=== PATIENT | female | born 1950 | race African-American/Black ===

== ENCOUNTER 2020-05-03 12:10 | Emergency (ER) | payer OTHER, BC ==
[2020-05-03 13:20] LABS: Basophils % 0.4 % (0-1.3); Hematocrit 40.5 % (36.0-45.0); Lymphocytes % 18.3 % (15.3-44.8); MPV 8.7 fL (7.6-11.3); RBC Red Blood Cell Count 4.54 M/uL (3.86-4.86)
[2020-05-03 13:35] LABS: BUN Blood Urea Nitrogen 9 mg/dL (7-18); Bicarbonate 29 mmol/L (21-32); Glucose Level 106 mg/dL (74-106); Potassium 3.9 mmol/L (3.5-5.1); Sodium Level 141 mmol/L (136-145); Troponin (Emerg Dept Use Only) < 0.02 ng/mL (0.0-0.045)
[2020-05-03 14:02] LABS: Urine Blood NEGATIVE (NEG); Urine Glucose NEGATIVE (NEG); Urine Protein 1+ (NEG)
--- NOTE | 2020-05-03 14:02 | RAD REPORT ---
EXAM DESCRIPTION: CT - Head Brain Wo Cont - 05/03/2020 1:45 pm CLINICAL HISTORY: DIZZINESS COMPARISON: Head angio dated 05/03/2020Head angio dated 05/03/2020; Head C Spine Mpr Wo Con dated 11/05 TECHNIQUE: Axial 5 mm thick images of the head were obtained without IV contrast. All CT scans are performed using dose optimization technique as appropriate and may include automated exposure control or mA/KV adjustment according to patient size. FINDINGS: No intracranial hemorrhage, mass, edema or shift of mid-line structures. No acute cortical based infarction. No cortical edema or sulcal effacement. Ventricles are normal. 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 Mastoid air cells and visualized portions of the paranasal sinuses are clear. No acute bony findings. IMPRESSION: Negative non-contrast CT head examination. Above detailed findings are similar to 2016 study.
--- NOTE | 2020-05-03 14:04 | RAD REPORT ---
EXAM DESCRIPTION: CT - Neck Angio - 05/03/2020 1:46 pm CLINICAL HISTORY: dizziness, stroke-like symptoms TECHNIQUE: During dynamic enhancement using nonionic IV contrast, axial 2 mm thick images of the nec k were obtained. Sagittal and axial reconstruction images were generated using MIP technique and revi ewed. All CT scans are performed using dose optimization technique as appropriate and may include automated exposure control or mA/KV adjustment according to patient size. COMPARISON: CT head same date FINDINGS: No aneurysm or vascular malformation identified. No carotid or vertebral dissection. No aortic arch or great vessel origin abnormality seen. Vertebral artery origins unremarkable as well . No stenosis, vasculitis or other significant carotid artery finding. No focal abnormality of either vertebral artery. Basilar artery is normal. Tortuosity of the carotid vasculature noted. Imaged port ions of the subclavian arteries show no suspicious findings. IMPRESSION: Negative CT angio neck examination.
--- NOTE | 2020-05-03 14:06 | RAD REPORT ---
EXAM DESCRIPTION: CT - Head angio - 05/03/2020 1:46 pm CLINICAL HISTORY: DIZZINESS, stroke-like symptoms TECHNIQUE: During dynamic enhancement using nonionic IV contrast, axial 1 millimeter thick images of the head were obtained. Sagittal and axial reconstruction images were generated using MIP technique and reviewed. All CT scans are performed using dose optimization technique as appropriate and may include automated exposure control or mA/KV adjustment according to patient size. COMPARISON: CT head same date FINDINGS: No aneurysm or vascular malformation identified. Major venous sinuses are patent. No stenosis, named branch occlusion, vasculitis or other significant vascular finding identifiable. IMPRESSION: Negative CT angio head examination.
[2020-05-03 14:30] LABS: SARS-COV-2 RT PCR POSITIVE (NEGATIVE)
[2020-05-03 14:36] LABS: Urine Bacteria <20 /HPF (<20); Urine RBC <5 /HPF (NONE SEEN)
[2020-05-03] MEDS ORDERED: NA CHLORIDE 0.9% 500 ML ONE (14:42)
[2020-05-03] MEDS ORDERED: MECLIZINE HCL 12.5 MG TAB ONE (14:42)
--- NOTE | 2020-05-03 15:01 | ER ---
Nurse's Notes [facility] Name: Alana Clarke Age: 70 yrs Sex: Female : 1950 Arrival Date: 05/03/2020 Time: 12:15 Bed 17 Private MD: Diagnosis: Dizziness and giddiness;Coronavirus infection, unspecified Presentation: 05/03 12:20 Chief complaint: EMS states: sinus congestion for a week and dizziness when she stands zb up for 2 days, tested negative for covid last Monday. works for [employer]. denies sob, chest pain, n/v, diarrhea, loss of taste or smell. Coronavirus screen: Client presents with at least one sign or symptom that may indicate coronavirus-19. Standard/surgical mask placed on the client. Provider contacted for isolation considerations. Ebola Screen: No symptoms or risks identified at this time. Initial Sepsis Screen: Does the patient meet any 2 criteria? No. Patient's initial sepsis screen is negative. Does the patient have a suspected source of infection? No. Patient's initial sepsis screen is negative. Risk Assessment: Do you want to hurt yourself or someone else? Patient reports no desire to harm self or others. Onset of symptoms was May 01, 2020. 12:20 Acuity: KOFI 3 zb 12:20 Method Of Arrival: EMS: [facility] zb Triage Assessment: 12:30 General: Appears in no apparent distress. comfortable, Behavior is calm, cooperative, zb appropriate for age. Pain: Denies pain. EENT: Nares with drainage noted Reports nasal congestion nasal discharge that is watery. Neuro: Level of Consciousness is awake, alert, obeys commands, Oriented to person, place, time, situation. Cardiovascular: Reports syncope, Denies chest pain, diaphoresis, Heart tones S1 S2 present Capillary refill < 3 seconds Patient's skin is warm and dry. Respiratory: Airway is patent Respiratory effort is even, unlabored, Respiratory pattern is regular, symmetrical, Breath sounds are clear bilaterally. GI: No signs and/or symptoms were reported involving the gastrointestinal system. : No signs and/or symptoms were reported regarding the genitourinary system. Derm: Skin is intact, is healthy with good turgor, Skin is dry, Skin is normal, Skin temperature is warm. Musculoskeletal: Circulation, motion, and sensation intact. Capillary refill < 3 seconds, in bilateral fingers. Range of motion: intact in all extremities. Historical: - Allergies: 12:24 No Known Allergies; zb - Home Meds: 12:23 amlodipine 5 mg tab 1 tab once daily [Active]; aspirin 81 mg Oral chew Every other day zb [Active]; atorvastatin 40 mg Oral tab 1 tab once daily [Active]; Vitamin D Oral [Active]; vitamin E Oral [Active]; - PMHx: 12:23 High Cholesterol; Hypertension; zb - PSHx: 12:23 None; zb - Immunization history:: Adult Immunizations up to date. - Social history:: Smoking status: Patient denies any tobacco usage or history of. - Family history:: not pertinent. - Hospitalizations: : No recent hospitalization is reported. Screenin:30 Abuse screen: Denies threats or abuse. Denies injuries from another. Nutritional zb screening: No deficits noted. Tuberculosis screening: No symptoms or risk factors identified. Fall Risk None identified. Assessment: 12:30 Reassessment: See triage note. zb 13:30 Reassessment: Patient appears in no apparent distress at this time. Patient and/or zb family updated on plan of care and expected duration. Pain level reassessed. Patient is alert, oriented x 3, equal unlabored respirations, skin warm/dry/pink. pt awaiting covid, ct, and x-ray results. 14:30 Reassessment: Patient appears in no apparent distress at this time. Patient and/or zb family updated on plan of care and expected duration. Pain level reassessed. Patient is alert, oriented x 3, equal unlabored respirations, skin warm/dry/pink. pt able to ambulated to the restroom. 14:56 Reassessment: ECP at bedside discussing care. zb 15:24 Reassessment: Patient appears in no apparent distress at this time. Patient and/or zb family updated on plan of care and expected duration. Pain level reassessed. Patient is alert, oriented x 3, equal unlabored respirations, skin warm/dry/pink. d/c instructions given to patient wheeled out. no c/o at this time. Vital Signs: 12:20 BP 117 / 103; Pulse 88; Resp 18; Temp 98.5; Pulse Ox 95% on R/A; Weight 81.65 kg; zb Height 5 ft. 5 in. (165.10 cm); Pain 0/10; 12:30 BP 140 / 80; Pulse 82; Resp 16; Pulse Ox 99% on R/A; zb 13:30 BP 134 / 79; Pulse 73; Resp 16; Pulse Ox 100% on R/A; zb 14:30 BP 147 / 87; Pulse 75; Resp 18; Pulse Ox 98% on R/A; zb 15:20 BP 148 / 86; Pulse 80; Resp 16; Pulse Ox 99% on R/A; zb 12:20 Body Mass Index 29.95 (81.65 kg, 165.10 cm) zb ED Course: 12:15 Patient arrived in ED. rn 12:16 Ethan Harrell MD is Attending Physician. rn 12:18 Jerry Patel, RN is Primary Nurse. jteo 12:19 Katie Souza, RN is Primary Nurse. zb 12:23 Triage completed. zb 12:28 Radiology exam delayed due to lab results not completed at this time. (BUN/Creatinine) mw3 IV insertion attempt and/or patient not having appropriate IV at this time. 12:53 Inserted saline lock: 20 gauge in left antecubital area, using aseptic technique. Blood dh4 collected. 13:44 CT Head Brain wo Cont In Process Unspecified. EDMS 13:46 CT Head Angio In Process Unspecified. EDMS 13:46 CT Neck Angio In Process Unspecified. EDMS 15:06 Patient has correct armband on for positive identification. Bed in low position. Call zb light in reach. Side rails up X 1. Pulse ox on. NIBP on. Door closed. Noise minimized. Warm blanket given. 15:06 Arm band placed on right wrist. zb 15:25 IV discontinued, intact, bleeding controlled, No redness/swelling at site. Pressure zb dressing applied. 15:25 No provider procedures requiring assistance completed. zb Administered Medications: 14:00 Drug: NS 0.9% 500 ml Route: IV; Rate: bolus; Site: right antecubital; zb 15:00 Follow up: IV Status: Completed infusion; IV Intake: 500ml zb 14:00 Drug: Meclizine 50 mg Route: PO; zb 15:23 Follow up: Response: No adverse reaction zb Intake: 15:00 IV: 500ml; Total: 500ml. zb Outcome: 15:00 Discharge ordered by . rn 15:25 Discharged to home via wheelchair. zb 15:25 Condition: stable 15:25 Discharge instructions given to patient, Instructed on discharge instructions, follow up and referral plans. covid precautions. Demonstrated understanding of instructions, follow-up care. 15:27 Patient left the ED. zb Signatures: Dispatcher [employer] EDMS Ethan Harrell MD MD rn Davies, Jonathon, RN RN Stacy Desai 3 Manohar Canales 4 Katie Souza RN RN zb
--- NOTE | 2020-05-03 15:01 | EDPHYS ---
Physician Documentation [facility] Name: Alana Clarke Age: 70 yrs Sex: Female : 1950 Arrival Date: 05/03/2020 Time: 12:15 Bed 17 Private MD: ED Physician Ethan Harrell HPI: 05/03 13:17 This 70 yrs old Black Female presents to ER via EMS with complaints of dizziness. rn 13:17 The patient presents with dizziness, lightheadedness. Onset: The symptoms/episode rn began/occurred 2 day(s) ago. Modifying factors: The symptoms are alleviated by lying down, the symptoms are aggravated by standing up, changing position. Associated signs and symptoms: Pertinent negatives: abdominal pain, chest pain, combativeness, confusion, diaphoresis, head injury, headache, numbness, palpitations, seizure, shortness of breath, syncope, vomiting. Severity of symptoms: At their worst the symptoms were mild in the emergency department the symptoms are unchanged. The patient has not experienced similar symptoms in the past. The patient has not recently seen a physician. Reports 2 days of intermittent dizziness, worst when trying to stand up from seated position, feels like might fall, gets better when laying down and taking her time. No head injury, no other neurological complaint. Reports thinks has sinus infection. No headache/vomiting/vision changes/chest pain/sob/abd pain/vomiting/diarrhea. No urinary symptoms. . Historical: - Allergies: 12:24 No Known Allergies; zb - Home Meds: 12:23 amlodipine 5 mg tab 1 tab once daily [Active]; aspirin 81 mg Oral chew Every other day zb [Active]; atorvastatin 40 mg Oral tab 1 tab once daily [Active]; Vitamin D Oral [Active]; vitamin E Oral [Active]; - PMHx: 12:23 High Cholesterol; Hypertension; zb - PSHx: 12:23 None; zb - Immunization history:: Adult Immunizations up to date. - Social history:: Smoking status: Patient denies any tobacco usage or history of. - Family history:: not pertinent. - Hospitalizations: : No recent hospitalization is reported. ROS: 13:17 Constitutional: Negative for fever, chills, and weight loss, Eyes: Negative for injury, rn pain, redness, and discharge, ENT: Negative for injury, pain, and discharge, Neck: Negative for injury, pain, and swelling, Cardiovascular: Negative for chest pain, palpitations, and edema, Respiratory: Negative for shortness of breath, cough, wheezing, and pleuritic chest pain, Abdomen/GI: Negative for abdominal pain, nausea, vomiting, diarrhea, and constipation, Back: Negative for injury and pain, : Negative for injury, bleeding, discharge, and swelling, MS/Extremity: Negative for injury and deformity, Skin: Negative for injury, rash, and discoloration, Neuro: Negative for headache, weakness, numbness, tingling, and seizure. Exam: 13:17 Constitutional: This is a well developed, well nourished patient who is awake, alert, rn and in no acute distress. Head/Face: Normocephalic, atraumatic. Eyes: Pupils equal round and reactive to light, extra-ocular motions intact. Lids and lashes normal. Conjunctiva and sclera are non-icteric and not injected. Cornea within normal limits. Periorbital areas with no swelling, redness, or edema. ENT: dry MM Neck: Trachea midline, no thyromegaly or masses palpated, and no cervical lymphadenopathy. Supple, full range of motion without nuchal rigidity, or vertebral point tenderness. No Meningismus. Cardiovascular: Regular rate and rhythm. No pulse deficits. Respiratory: No increased work of breathing, no retractions or nasal flaring. Abdomen/GI: soft, non-tender Skin: Warm, dry MS/ Extremity: Pulses equal, no cyanosis. Neurovascular intact. Full, normal range of motion. Equal circumference. Neuro: Awake and alert, GCS 15, oriented to person, place, time, and situation. Cranial nerves II-XII grossly intact. Motor strength 5/5 in all extremities. Sensory grossly intact. Cerebellar exam normal. Normal finger to nose. 13:57 ECG was reviewed by the Attending Physician. rn Vital Signs: 12:20 BP 117 / 103; Pulse 88; Resp 18; Temp 98.5; Pulse Ox 95% on R/A; Weight 81.65 kg; zb Height 5 ft. 5 in. (165.10 cm); Pain 0/10; 12:30 BP 140 / 80; Pulse 82; Resp 16; Pulse Ox 99% on R/A; zb 13:30 BP 134 / 79; Pulse 73; Resp 16; Pulse Ox 100% on R/A; zb 14:30 BP 147 / 87; Pulse 75; Resp 18; Pulse Ox 98% on R/A; zb 15:20 BP 148 / 86; Pulse 80; Resp 16; Pulse Ox 99% on R/A; zb 12:20 Body Mass Index 29.95 (81.65 kg, 165.10 cm) zb MDM: 12:16 Patient medically screened. rn 14:58 Differential diagnosis: cardiac arrhythmia, hypovolemia, idiopathic dizziness, rn near-syncope, TIA, vertigo, COVID, sinus infection, flu. Data reviewed: vital signs, nurses notes, lab test result(s), EKG, radiologic studies, CT scan, and as a result, I will discharge patient. Counseling: I had a detailed discussion with the patient and/or guardian regarding: the historical points, exam findings, and any diagnostic results supporting the discharge/admit diagnosis, lab results, radiology results, the need for outpatient follow up, to return to the emergency department if symptoms worsen or persist or if there are any questions or concerns that arise at home. Response to treatment: the patient's symptoms have mildly improved after treatment, and as a result, I will discharge patient. Special discussion: I discussed with the patient/guardian in detail that at this point there is no indication for admission to the hospital. It is understood, however, that if the symptoms persist or worsen the patient needs to return immediately for re-evaluation. Based on the history and exam findings, there is no indication for further emergent testing or inpatient evaluation. I discussed with the patient/guardian the need to see the primary care provider for further evaluation of the symptoms. ED course: CT head neg, CT angios neg, no other acute findings in bloodwork, is COVID +, no oxygen requirement or respiratory symptoms, will dc home with return precautions. . 05/03 12:19 Order name: CBC with Diff rn 05/03 12:19 Order name: Basic Metabolic Panel rn 05/03 12:19 Order name: Procalcitonin; Complete Time: 14:11 rn 05/03 12:19 Order name: Urine Microscopic Only; Complete Time: 14:53 rn 05/03 12:19 Order name: Troponin (emerg Dept Use Only); Complete Time: 14:11 rn 05/03 12:19 Order name: CT Head Brain wo Cont; Complete Time: 14:11 05/03 12:19 Order name: CT Head Angio; Complete Time: 14:11 05/03 12:19 Order name: CBC with Automated Diff; Complete Time: 14:11 EDHI 05/03 12:19 Order name: Basic Metabolic Panel; Complete Time: 14:11 EDHI 05/03 13:22 Order name: Urine Dipstick--Ancillary (enter results); Complete Time: 14:11 05/03 13:29 Order name: CREATININE WHOLE BLOOD; Complete Time: 14:11 EDHI 05/03 14:30 Order name: COVID-19/FLU A+B; Complete Time: 14:53 EDHI 05/03 12:19 Order name: IV Start; Complete Time: 13:08 05/03 12:19 Order name: Urine Dipstick-Ancillary (obtain specimen); Complete Time: 13:08 05/03 12:19 Order name: EKG; Complete Time: 12:19 05/03 12:19 Order name: EKG - Nurse/Tech; Complete Time: 13:23 05/03 12:19 Order name: CT Neck Angio; Complete Time: 14:11 rn EC:57 Rate is 83 beats/min. Rhythm is regular. QRS [place] is Normal. [place] interval is normal. QRS rn interval is normal. QT interval is normal. No Q waves. T waves are Normal. No ST changes noted. Clinical impression: Normal ECG and LVH. Interpreted by me. Reviewed by me. Administered Medications: 14:00 Drug: NS 0.9% 500 ml Route: IV; Rate: bolus; Site: right antecubital; zb 15:00 Follow up: IV Status: Completed infusion; IV Intake: 500ml zb 14:00 Drug: Meclizine 50 mg Route: PO; zb 15:23 Follow up: Response: No adverse reaction zb Disposition: 05/03/20 15:00 Discharged to Home. Impression: Dizziness and giddiness, Coronavirus infection, unspecified. - Condition is Stable. - Discharge Instructions: Dizziness, COVID-19. - Medication Reconciliation Form, Thank You Letter, Antibiotic Education, Prescription Opioid Use form. - Follow up: Private Physician; When: 2 - 3 days; Reason: Recheck today's complaints, Re-evaluation by your physician. - Problem is new. - Symptoms have improved. Signatures: Dispatcher [employer] [facility] Ethan Harrell MD MD rn Brown, Zipporah, RN RN zb Corrections: (The following items were deleted from the chart) 13:25 12:19 CORONAVIRUS+ ordered. [facility] 15:27 15:00 05/03/2020 15:00 Discharged to Home. Impression: Dizziness and giddiness; zb Coronavirus infection, unspecified. Condition is Stable. Forms are Medication Reconciliation Form, Thank You Letter, Antibiotic Education, Prescription Opioid Use. Follow up: Private Physician; When: 2 - 3 days; Reason: Recheck today's complaints, Re-evaluation by your physician. Problem is new. Symptoms have improved. rn
[2020-05-03 15:32] VITALS: TEMP 98.5
[2020-05-03 15:37] VITALS: BP 148/86; O2SAT 99
--- NOTE | 2020-05-04 07:31 | EKG ---
Test Date: 2020-05-03 Test Time: 12:30:44 Mop Man: BREANN MEASUREMENT RESULTS: Intervals: Rate: 83 [place]: 188 QRSD: 94 QT: 380 QTc: 446 Guild: P: 44 [place]: 188 QRS: 14 T: 17 INTERPRETIVE STATEMENTS: Normal sinus rhythm Minimal voltage criteria for LVH, may be normal variant Borderline ECG Compared to ECG 11/06/2015 10:28:52 Left ventricular hypertrophy now present Electronically Signed On 05-04-20 07:30:06 [employer] by Chirag Obrien
== END 2020-05-03 15:27 | disposition home or self-care (01) ==
LOC: ER 12:10
DX: U07.1 COVID-19 (principal); I10 Essential (primary) hypertension; E78.00 Pure hypercholesterolemia, unspecified; Z79.82 Long term (current) use of aspirin
CPT/HCPCS: 93005; 85025; 80048; 36415; 82565; 84484; 84145; 0240U; 70450; 70496; 70498; 96360; 99284; Q9967; J7040; 81003; 81015